=== PATIENT | male | born 1975 | race Two or more races ===

== ENCOUNTER 2022-10-17 11:41 | Outpatient (CLI) | payer MEDICAID | END 2022-10-17 23:59 | disposition critical access hospital (66) | LOC: EMS 11:41 | DX: R44.3 Hallucinations, unspecified (principal) | CPT/HCPCS: A0425; A0429; A0999 ==

== ENCOUNTER 2022-10-17 12:04 | Emergency (ER) | payer MEDICAID, OTHER ==
[2022-10-17 12:12] VITALS: BP 121/80
--- NOTE | 2022-10-17 12:27 | ED Physician Documentation ---
PD HPI MHE - Stated complaint Stated Complaint: MHE - Chief complaint Chief Complaint: MHE - History obtained from History obtained from: Patient - Additional information Additional information: Patient is a 47-year-old male with a history of alcohol abuse presenting for evaluation from [facility].Is no nurse report from the [facility] so the presentation is a bit unclear. Per the RN that the medics stated that the patient was sent for hallucinations for the past 2 days. Patient states he has been at the facility for the past 4 days. He believes he was sent here for evaluation of abnormal labs. He denies SI or HI.I asked if he is having hallucinations and he denies this. Review of Systems Constitutional: denies: Fever Cardiac: denies: Chest pain / pressure Respiratory: denies: Dyspnea GI: denies: Abdominal Pain Neurologic: denies: Headache PD PAST MEDICAL HISTORY - Allergies Allergies/Adverse Reactions: Allergies Allergy/AdvReac Type Severity Reaction Status Date / Time No Known Drug Allergies Allergy Verified 10/17/22 12:09 PD ED PE NORMAL - General General: Alert and oriented X 3, No acute distress, Well developed/nourished - HEENT HEENT: Atraumatic - Neck Neck: Supple, no meningeal sign - Cardiac Cardiac: RRR - Respiratory Respiratory: No respiratory distress, Clear bilaterally - Abdomen Abdomen: Soft, Non tender, Non distended - Derm Derm: Warm and dry - Neuro Neuro: Normal speech Results - Vitals Vitals: Vital Signs - 24 hr 10/17/22 10/17/22 12:09 12:12 Temperature 36.6 C 36.6 C Heart Rate 90 90 Respiratory 16 16 Rate Blood Pressure 121/80 121/80 O2 Saturation 96 96 Oxygen O2 Source Room air - Labs Labs: Laboratory Tests 10/17/22 10/17/22 10/17/22 12:23 12:23 12:23 WBC 6.4 RBC 3.95 L Hgb 13.1 L Hct 37.5 L MCV 94.9 H MCH 33.2 H MCHC 34.9 RDW 13.0 Plt Count 68 L MPV 11.4 Neut # (Auto) 4.4 Lymph # (Auto) 0.9 L [place] # (Auto) 0.9 Eos # (Auto) 0.1 Baso # (Auto) 0.0 Absolute Nucleated RBC 0.00 Nucleated RBC % 0.0 Sodium 132 L Potassium 3.4 L Chloride 93 L Carbon Dioxide 25 Anion Gap 14.0 H BUN 9 Creatinine 0.8 Estimated GFR (MDRD) 104 Glucose 118 H Calcium 9.1 Total Bilirubin 4.7 H AST 146 H ALT 63 H Alkaline Phosphatase 97 Ammonia Total Protein 7.2 Albumin 3.5 Globulin 3.7 Albumin/Globulin Ratio 0.9 L Lipase 65 H TSH 7.30 H Free T4 Urine Color Urine Clarity Urine pH Ur Specific [place] Urine Protein Urine Glucose (UA) Urine Ketones Urine Occult Blood Urine Nitrite Urine Bilirubin Urine Urobilinogen Ur Leukocyte Esterase Ur Microscopic Review Urine Culture Comments Salicylates < 6.0 Urine Opiates Screen Ur Oxycodone Screen Urine Methadone Screen Ur Propoxyphene Screen Acetaminophen < 10 L Ur Barbiturates Screen Ur Tricyclics Screen Ur Phencyclidine Scrn Ur Amphetamine Screen U Methamphetamines Scrn U Benzodiazepines Scrn Urine Cocaine Screen U Cannabinoids Screen Ethyl Alcohol < 5.0 10/17/22 10/17/22 10/17/22 12:24 13:10 14:24 WBC RBC Hgb Hct MCV MCH MCHC RDW Plt Count MPV Neut # (Auto) Lymph # (Auto) [place] # (Auto) Eos # (Auto) Baso # (Auto) Absolute Nucleated RBC Nucleated RBC % Sodium Potassium Chloride Carbon Dioxide Anion Gap BUN Creatinine Estimated GFR (MDRD) Glucose Calcium Total Bilirubin AST ALT Alkaline Phosphatase Ammonia 22.4 Total Protein Albumin Globulin Albumin/Globulin Ratio Lipase TSH Free T4 1.37 Urine Color DK. ORANGE Urine Clarity CLEAR Urine pH 6.0 Ur Specific [place] 1.010 Urine Protein NEGATIVE Urine Glucose (UA) NEGATIVE Urine Ketones NEGATIVE Urine Occult Blood NEGATIVE Urine Nitrite NEGATIVE Urine Bilirubin MODERATE H Urine Urobilinogen 2 H Ur Leukocyte Esterase NEGATIVE Ur Microscopic Review NOT INDICATED Urine Culture Comments NOT INDICATED Salicylates Urine Opiates Screen NEGATIVE Ur Oxycodone Screen NEGATIVE Urine Methadone Screen NEGATIVE Ur Propoxyphene Screen NEGATIVE Acetaminophen Ur Barbiturates Screen NEGATIVE Ur Tricyclics Screen NEGATIVE Ur Phencyclidine Scrn NEGATIVE Ur Amphetamine Screen NEGATIVE U Methamphetamines Scrn NEGATIVE U Benzodiazepines Scrn POSITIVE H Urine Cocaine Screen NEGATIVE U Cannabinoids Screen POSITIVE H Ethyl Alcohol PD Medical Decision Making - ED course Complexity details: reviewed results, re-evaluated patient, d/w patient ED course: 1400 - Discussed with RN and GAMALIEL. They states that this morning he was being aggressive with trying to stop at chairs which was more that they could handle. They also stated that his blood pressure and heart rate were not elevated and felt that this was not related to withdrawal symptoms and thought that perhaps it was related to a psychiatric reason. They do have psychiatric services available through [facility] but did not pursue this avenue this morning. Discussed that if patient has been cooperative here without requiring any medications whether he can come back. RN is going to check with her tire center supervisor.They are holding his bed. 1420 - [facility] RN has called back and stated that the provider would like an ammonia level. I did explain that the patient does not appear to be encephalopathic. They are still requesting this lab which I have ordered. I did review this with the patient. Patient presenting for evaluation of hallucinations from the [facility] Reported aggressive behavior.He is not aggressive here. He appears to be alert and oriented x4. He does at times hallucinate and reports seeing his down the hallway. His CIWA score was 6 Prior to receiving any medication (one score is charted at 25 Patient is observed in the hallway being calm not agitated I did ask the manufacturing plant manager to recheck his CIWA score She obtained a 6). His initial reason for presentation was unclear as [facility] did not give a nurse to nurse report. Therefore screening labs were obtained. His bilirubin is elevated as are his LFTs. These are noted on prior labs he has had as an outpatient although his bili is slightly more elevated today than it has been previously. Itching was initially ordered as I was not clear as to why patient was sent to the emergency department.He does not have any right upper quadrant tenderness on exam Reports he has known abnormal LFTs I was eventually able to get outpatient records.Therefore I did cancel the ultrasound as this does not appear to be an acute issue for the patient.Patient has not been aggressive here. He at times is hallucinating which could be related to alcohol withdrawal or an underlying psychiatric diagnosis. I did review the case with the RN at [facility] and she has spoken to her provider there. There agreeable and receiving the patient back there and have held the bed. He is not suicidal or homicidal. He does answer most of my questions appropriately and again does not appear to be acutely altered. Departure - Departure Disposition: 01 Home, Self Care Clinical Impression: Alcohol withdrawal syndrome, Abnormal liver function test Condition: Stable Instructions: ED Withdrawal Alcohol Comments: [facility] is expecting you and is holding your bed for you. Please continue with your treatment.Your liver markers are elevated which is likely related to your alcohol use. I would recommend close follow-up with your primary care provider for Continued monitoring. [facility] [address] [facility] offers a monitored and safe setting for individuals withdrawing from alcohol and drugs, and counseling for individuals experiencing a mental health crisis. All services are provided in a 10-bed facility where intensive medical monitoring is required along with stabilization services. The goal of these services is to assess a clients mental health and substance use disorder related needs, and assist them in accessing the services they need to recover. Discharge Date/Time: 10/17/22 15:20
[2022-10-17 12:31] LABS: BASOPHILS % (AUTO) 0.5 %; EOSINOPHILS # (AUTO) 0.1 10^3/uL (0.0-0.7); EOSINOPHILS % (AUTO) 1.1 %; HCT - HEMATOCRIT 37.5 % (42.0-52.0); HGB - HEMOGLOBIN 13.1 g/dL (14.0-18.0); LYMPHOCYTES # (AUTO) 0.9 10^3/uL (1.5-3.5); LYMPHOCYTES % (AUTO) 14.5 %; MEAN CORPUSCULAR HEMOGLOBIN 33.2 pg (27.0-31.0); MEAN CORPUSCULAR HGB CONC 34.9 g/dL (32.0-36.0); MEAN CORPUSCULAR VOLUME 94.9 fL (80.0-94.0); MEAN PLATELET VOLUME 11.4 fL (7.4-11.4); MONOCYTES # (AUTO) 0.9 10^3/uL (0.0-1.0); MONOCYTES % (AUTO) 14.7 %; NEUTROPHILS # (AUTO) 4.4 10^3/uL (1.5-6.6); NEUTROPHILS % (AUTO) 68.7 %; PLT - PLATELET COUNT 68 10^3/uL (130-450); RED BLOOD COUNT 3.95 10^6/uL (4.70-6.10); WHITE BLOOD COUNT 6.4 x10^3/uL (4.8-10.8)
[2022-10-17 12:47] LABS: ACETAMINOPHEN < 10 ug/mL (10-30); ALBUMIN 3.5 g/dL (3.2-5.5); ALBUMIN/GLOBULIN RATIO 0.9 (1.0-2.2); ALKALINE PHOSPHATASE 97 IU/L (42-121); ALT ALANINE AMINOTRANSFERASE 63 IU/L (10-60); AST ASPARTATE AMINOTRANSFERASE 146 IU/L (10-42); BILIRUBIN,TOTAL 4.7 mg/dL (0.2-1.0); BUN - BLOOD UREA NITROGEN 9 mg/dL (6-20); CALCIUM 9.1 mg/dL (8.5-10.3); CARBON DIOXIDE - CO2 25 mmol/L (21-32); CHLORIDE 93 mmol/L (101-111); CREATININE 0.8 mg/dL (0.6-1.2); ETOH - ETHANOL < 5.0 mg/dL; GFR - MDRD 104 (>89); GLUCOSE 118 mg/dL (70-100); LIPASE 65 U/L (22-51); POTASSIUM 3.4 mmol/L (3.5-5.0); SALICYLATE < 6.0 mg/dL; SODIUM 132 mmol/L (135-145); TOTAL PROTEIN 7.2 g/dL (6.7-8.2)
[2022-10-17 13:16] LABS: MUDS CUTOFF CONCENTRATIONS CUTOFF CONC BELOW:
[2022-10-17 13:19] LABS: GLUCOSE, URINE (UA) NEGATIVE (NEGATIVE); KETONES,URINE (UA) NEGATIVE (NEGATIVE); LEUKOCYTE ESTERASE, URINE NEGATIVE (NEGATIVE); NITRITE,URINE NEGATIVE (NEGATIVE); OCCULT BLOOD,URINE NEGATIVE (NEGATIVE); PROTEIN,URINE NEGATIVE (NEGATIVE); UROBILINOGEN,URINE 2 E.U./dL (NORMAL)
[2022-10-17 13:28] LABS: CLARITY,URINE CLEAR (CLEAR)
[2022-10-17 13:32] LABS: BILIRUBIN,URINE MODERATE (NEGATIVE); ICTOTEST,URINE POSITIVE
[2022-10-17 13:33] LABS: AMPHETAMINE SCREEN,URINE NEGATIVE (NEGATIVE); BARBITURATE SCREEN,UR NEGATIVE (NEGATIVE); BENZODIAZEPINES SCREEN, URINE POSITIVE (NEGATIVE); COCAINE SCREEN URINE NEGATIVE (NEGATIVE); METHADONE SCREEN, URINE NEGATIVE (NEGATIVE); METHAMPHETAMINES SCREEN, URINE NEGATIVE (NEGATIVE); OPIATE SCREEN, URINE NEGATIVE (NEGATIVE); OXYCODONE SCREEN, URINE NEGATIVE (NEGATIVE); PROPOXYPHENE SCREEN, URINE NEGATIVE (NEGATIVE); THC CANNABINOID SCREEN, URINE POSITIVE (NEGATIVE); TRICYCLIC ANTIDEPRESSANT,URINE NEGATIVE (NEGATIVE)
[2022-10-17] MEDS ORDERED: LORazepam 1 MG TABLET PO STA (14:03)
== END 2022-10-17 15:20 | disposition home or self-care (01) ==
LOC: ED 12:04
DX: F10.239 Alcohol dependence with withdrawal, unspecified (principal); Y90.0 Blood alcohol level of less than 20 mg/100 ml; R44.3 Hallucinations, unspecified; R74.01 Elevation of levels of liver transaminase levels; E80.6 Other disorders of bilirubin metabolism
CPT/HCPCS: 36415; 80053; 80306; 80307; 80320; 80329; 81003; 82140; 83690; 84439; 84443; 85025; 99285; J8499; 81001; 87086

== ENCOUNTER 2022-10-17 18:26 | Outpatient (CLI) | payer MEDICAID | END 2022-10-17 18:27 | disposition critical access hospital (66) | LOC: EMS 18:26 | DX: R44.1 Visual hallucinations (principal); F41.9 Anxiety disorder, unspecified | CPT/HCPCS: A0425; A0429; A0999 ==

== ENCOUNTER 2022-10-17 18:47 | Emergency (ER) | payer MEDICAID ==
[2022-10-17] MEDS ORDERED: OLANZapine ODT 5 MG TABLET TL STA (19:17)
--- NOTE | 2022-10-17 19:42 | ED Physician Documentation ---
PD HPI MHE - Stated complaint Stated Complaint: AMS - Chief complaint Chief Complaint: MHE - History obtained from History obtained from: Patient, EMS - Additional information Additional information: The patient is sent back to the emergency department by a 2 for reported complaint of "we cannot keep him". The patient has a reported history of bipolar disorder and was noted to have some hallucinations and delusional thinking while at [facility]. They sent him here for an evaluation this morning, which revealed an elevated TSH at just over 7, but otherwise, fairly unremarkable work-up. He has been at [facility] to for nearly a week and has been there for alcohol treatment and at this point in time, would be expected to be out of the window of withdrawal/delirium tremens. He was noted to have some delusions and low-level hallucinations this morning, but was easily redirectable and could have a conversation. He was neither homicidal nor suicidal and after extensive work-up and observation time, he was felt to be stable and not having an acute psychotic crisis and I to I did agree to accept him back. However, they do not have a provider available there and have decided that they prefer not to keep the patient after all. The patient denies feeling any worse. Nursing staff who had him earlier feels that he is the same as when he was here before. The patient denies any other complaints at this time. He states he is feeling fine. He is not currently homicidal or suicidal. He is able to tell me that he lives in [place] with his and that the rest of his family is from [place]. He knows that he is on [facility]. PD PAST MEDICAL HISTORY - Allergies Allergies/Adverse Reactions: Allergies Allergy/AdvReac Type Severity Reaction Status Date / Time No Known Drug Allergies Allergy Verified 10/17/22 18:48 PD ED PE NORMAL - Vitals Vital signs reviewed: Yes - General General: Alert and oriented X 3, No acute distress, Well developed/nourished - HEENT HEENT: Atraumatic, PERRL, EOMI, Moist mucous membranes - Neck Neck: Supple, no meningeal sign - Respiratory Respiratory: No respiratory distress - Abdomen Abdomen: Non distended - Derm Derm: Normal color, Warm and dry, No rash - Extremities Extremities: No deformity - Neuro Neuro: Alert and oriented X 3, web site developer 2-12 intact, No motor deficit, No sensory deficit, Normal speech - Psych Psych: Normal mood, Normal affect, Other (The patient is very calm and cooperative and pleasant. He occasionally notes feeling as though there is a cat sitting on his arm, and does veer off into speaking of being chased by "agents" at sometime in the past but otherwise, is coherent and appropriate.) Results - Vitals Vitals: Vital Signs - 24 hr 10/17/22 10/17/22 10/18/22 18:48 18:52 05:21 Temperature 36.5 C 36.5 C Heart Rate 100 100 115 H Respiratory 18 18 18 Rate Blood Pressure 124/78 124/78 133/86 H O2 Saturation 96 96 97 Oxygen O2 Source Room air - Labs Labs: Laboratory Tests 10/18/22 04:31 Nasal Adenovirus (PCR) NOT DETECTED Nasal B. parapertussis DNA (PCR) NOT DETECTED Nasal Coronavir 229E PCR NOT DETECTED Nasal Coronavir HKU1 PCR NOT DETECTED Nasal Coronavir NL63 PCR NOT DETECTED Nasal Coronavir OC43 PCR NOT DETECTED Nasal Enterovir/Rhinovir PCR NOT DETECTED Nasal Influenza B PCR NOT DETECTED Nasal Influenza A PCR NOT DETECTED Nasal Parainfluen 1 PCR NOT DETECTED Nasal Parainfluen 2 PCR NOT DETECTED Nasal Parainfluen 3 PCR NOT DETECTED Nasal Parainfluen 4 PCR NOT DETECTED Nasal RSV (PCR) NOT DETECTED Nasal B.pertussis DNA PCR NOT DETECTED Nasal C.pneumoniae (PCR) NOT DETECTED Kuldip Human Metapneumo PCR NOT DETECTED Nasal M.pneumoniae (PCR) NOT DETECTED Nasal SARS-CoV-2 (PCR) NOT DETECTED PD Medical Decision Making - ED course Complexity details: reviewed old records, reviewed results, re-evaluated patient, considered differential, d/w patient ED course: I reviewed the patient's records from this morning and spoke with the emergency physician who had evaluated him this morning. The patient did have some low- level hallucinations and exhibited occasional delusional statements/thoughts, but overall, Was initially redirectable and fairly functional. I spoke with Joyce, his significant other, who stated that the patient had previously been on Seroquel but had gone off of it about a year ago and at that time the drin anu had increased. She states they have only been together 3 to 4 years and was not aware of the patient having had hallucinations or delusions before. She does not know why he was placed on Seroquel but is thought to have bipolar disorder. She stated that they live up in [place] and she has no way of coming to get him and anyway would like him to be evaluated from a mental health perspective. At this point in time, the patient is not suicidal or homicidal and I felt that he could stay voluntarily. The situation was explained to him, that he would need to wait overnight to see social work in the morning and he was agreeable. However, the patient became increasingly agitated over the course of the night, roaming around the emergency department, including increasingly responding to internal stimuli and Frequently making delusional statements. He had been given Zyprexa and Seroquel at the beginning of his stay, and then was given a dose of Ativan. This did seem to help slightly but the patient rebounded quickly and was worse than before. He was then given Haldol and Ativan, due to the fact that even though he is redirectable, he was constantly up roaming around, yelling at people or things that were not there, and getting into drawers and sharps container. The Haldol and Ativan helped slightly but again, the patient was back up roaming around. I did order a dose of Valium, which did seem to calm the patient down a little bit more. He had already had extensive work-up performed earlier today and had been gone only a couple of hours before returning. He had been under the strict care of the transport staff and a to his staff and they felt it was extremely unlikely that he would have gotten into anything new between his initial visit and now. I finally consulted the Telemetry psychiatrist because of the patient's escalating behavior despite multiple doses of Antianxiety and antipsychotic medication. At this point in time, the patient is in the process of being evaluated by them. He has continued to be redirectable and generally cooperative, without any threats to the staff or other patients. The patient will likely be considered involuntary at this point, though we will wait and see what the telepsychiatrist has to say. The patient is signed out to my oncoming colleague at change of shift, pending final disposition. 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 It does appear that your thyroid may be a bit low, but further testing with your primary care physician would be most ideal to determine the best course of action. We will give you a prescription for the thyroid replacement for now. At this point in time, I to a prefers not to take you back, as they feel they have adequately treated your alcohol withdrawal and they feel that you need to get further help with your mental health state before you stay any longer with them. Please speak with your primary doctor about follow-up for mental health. You may also speak with your doctor about some resources closer to where you live that can be helpful with your alcohol abuse.
[2022-10-17] MEDS ORDERED: QUEtiapine 25 MG TABLET PO STA (20:19)
[2022-10-17] MEDS ORDERED: LORazepam 2 MG/ML VIAL IM STA (21:31)
[2022-10-18] MEDS ORDERED: HALOPERIDOL 5 MG/ML VIAL IM STA (02:00)
[2022-10-18] MEDS ORDERED: LORazepam 2 MG/ML VIAL IM STA (02:00)
[2022-10-18] MEDS ORDERED: diazePAM INJ 5 MG/ML SYRINGE IM STA (04:38)
[2022-10-18 05:55] LABS: B. PARAPERTUSSIS- RESP PCR PAN NOT DETECTED; B. PERTUSSIS- RESP PCR PANEL NOT DETECTED; C. PNEUMONIAE- RESP PCR PANEL NOT DETECTED; CORONAVIRUS 229E-RESP PCR NOT DETECTED; CORONAVIRUS HKU1-RESP PCR NOT DETECTED; CORONAVIRUS NL63-RESP PCR NOT DETECTED; CORONAVIRUS OC43-RESP PCR NOT DETECTED; HUMAN METAPNEUMOVIRUS NOT DETECTED; INFLUENZA A- RESP PCR PANEL NOT DETECTED; INFLUENZA B - RESP PCR PANEL NOT DETECTED; M. PNEUMONIAE- RESP PCR PANEL NOT DETECTED; PARAINFLUENZA VIRUS 1 NOT DETECTED; PARAINFLUENZA VIRUS 2 NOT DETECTED; PARAINFLUENZA VIRUS 3 NOT DETECTED; PARAINFLUENZA VIRUS 4 NOT DETECTED; RHINOVIRUS/ENTEROVIRUS NOT DETECTED; RSV- RESP PCR PANEL NOT DETECTED; SARS-CoV-2 -RESP PCR PANEL NOT DETECTED
[2022-10-18] MEDS ORDERED: OLANZapine 10 MG VIAL IM STA (08:24)
--- NOTE | 2022-10-18 08:37 | TELEPSYCH PHYS NOTE ---
Telepsych Consultation Note Consult: Name: Del RhodesOB: 1975 DateandTime: 10/18/2022 10:35:07 AM [facility] Length of consult: 50 minutes This evaluation was conducted via video telepsychiatry with the assistance of onsite staff Reason for consult: Psychotic symptoms Requested by: Dr. Colón History of Present Illness: Chart reviewed and appreciated, case discussed with ED attending Dr. Colón, and [facility] 47 y/[facility] male with possible history of bipolar disorder as well as extensive alcohol abuse, sent to ED for second time in 24 hours from rehab facility due to psychotic symptoms. The first time, pt was sent back to rehab but then was sent back to ED again due to increased symptoms. Pt was initially calm, able to carry on conversation but having visual hallucinations. However, overnight the pt became increasingly agitated, delusional, and having increased hallucinations. Pt received multiple medications including Seroquel, Zyprexa, Haldol, total of 4 mg of Ativan and 10 mg of Valium. None of this helped significantly per attending, though pt is somewhat calmer this morning. Attending reports that pt has had tactile hallucination of cat crawling on him. Possibility of DT's was considered, unknown exactly when last drink was however pt had been at rehab for approximately 5-6 days and received Ativan there for detox. Pt's detox was completed and psychotic symptoms emerged after that point. Vitals have been stable while in the ED, pt has no tremor or other objective signs of withdrawal. Pt also had medical workup, showed TSH of 7 but otherwise unremarkable. Staff spoke with pt's , who was unaware of any prior psychosis but has only been with pt for a few years. She did report that pt was on Seroquel in the past, quit taking it about a year ago and has been drinking heavily since then. Per [facility] note, pt denied SI or HI but made bizarre statement about wanting to kill gum machine operator Jose Ross because "'I don't think the baby will come out right'". Pt was apparently talking to his who was not present, was oriented only to person/place, reported that Jean-Paul Reyesmcfarland is President. Pt seen and examined, is initially pacing around, has to be redirected by staff. Pt is cooperative with interview but is quite disorganized, illogical for the most part. Pt is able to answer a few questions coherently but otherwise most of what he says is nonsensical. Pt is also visibly responding to internal stimuli. Initially staff explains this is a telepsych evaluation, and pt replies, "hi tele". When asked why pt is in the ED, he replies, "I was in here, already having the trust and then... out here the hulk... which also after that were, it it, ADHD too and bipolar depression... [facility]". When asked if hearing or seeing anything concerning, pt replies, "there was a first, yeah". "Going wow, for some reason my head just". Pt is able to state his date of , but reports date as 23 of September. When asked for year, pt replies, "9 dollars, my brother is screwing on me". When asked again, pt replies, "12, it's a worm to go...". Pt reports being in [place]. Pt admits to history of bipolar disorder. When asked about past symptoms, pt replies, "hold on I lost the remote". Pt then states he found it. When asked if pt has history of hallucinations or paranoia with bipolar disorder, pt replies, "yeah but not like that". Pt recalls taking Seroquel, reports that he will not take that anymore. When asked why, pt replies, "...that was with 10 mg or 100 mg... everyone called it dirt bike bags, or dirt flow bags, just the worst words you possibly..." Retail Visual Merchandiser informs pt of recommendation for inpatient psychiatric treatment. Pt inquires where he would go, leader writer explains that is not known yet. Pt reports he is agreeable to treatment. However, when asked about treatment plan just discussed, pt replies, "number one". When asked where he would go from here for treatment, pt replies, "the beginning". Pt then states, "I need to take a quick break, I'll be right back". Unable to obtain any further meaningful history from pt. Attempted to contact pt's but there was no answer. [facility] also tried twice previously, mailbox was full so message could not be left. Collateral Contacted: Juanita for not contacting the collateral:No answer Phone Number:kathy Cook, . Sleep issues?: YesSleep Quantity:Patient has been awake all night despite receiving multiple medications.Sleep Quality:Poor Psychiatric History/Treatment History: Past diagnoses: Bipolar disorder Hospitalizations: YesDescription:Details not known Current Treatment:No Suicide Assessment: PSS-3: 1) Over the past 2 weeks have you felt down, depressed or hopeless?Unknown-NA Description:Unable to complete due to pt's current mental status. However, pt denies current SI. 2) Over the past 2 weeks have you had thoughts of killing yourself?Unknown-NA 3) Have you ever in your life attempted to kill yourself?Unknown-NA Within the past 6 months? [facility] Safety Assessment: Risk Factors Stressors: Unable to obtain due to pt's mental status Attempts/Self-injury: Unknown-NA Impulsivity:YesDescription:Impulsive behavior during current ED visit. Drug/Alcohol History:YesDescription:History of alcohol abuse, was at rehab facility. UDS positive for cannabis. Trauma History:Unknown-NA Access to firearms:Unknown-NA HI/Violence/Property destruction:No Legal: Unknown-NA Family Psych History:YesDescription:Pt previously reported "everyone has issues". Family History of suicide:Unknown-NA Protective Factors: Can handle stress well?Unknown-NA Episcopalian?Unknown-NA External: Social supports/ Therapeutic relationships: YesDescription: Relationship history: Pt is . Living situation: Lives with . 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 Education: High school Responsibility to family/children/work: Unknown-NA Future orientation:YesDescription:Pt reported to [facility] that he wants to get home to his . Health History: Medical History: None documented Medications & Freq: None Allergies: NKDA Mental Status Exam: Appearance and Attire:Disheveled, Appears stated age Psychomotor agitation:Psychomotor agitation, Pacing around, has to be redirected multiple times. Attitude and behavior:Cooperative but confused Speech:Normal to low volume, mumbling at times, rambling Mood:Somewhat anxious Affect:Blunted Thought process:Disorganized, illogical, often incoherent Thought content:No suicidal ideation, No homicidal ideation Perception:Pt is visibly responding to internal stimuli, thinks he is talking to his brother. Pt also has been observed by staff to have VH and tactile hallucinations as well. Intel:Unable to assess Abstract:Unable to assess Language:No abnormality Orientation:Oriented to self only Sense:Alert Knowledge:Unable to assess Memory:Unable to assess Insight:Impaired Judgement:Impaired Gait:No abnormality Impression/Risk Assessment: Current Suicide Risk Elevated?No Current Violence Risk Elevated?No Issues with ability to care for self?Yes Summary: 47 y/o male with history of likely bipolar disorder as well as alcohol abuse, with past psychiatric admissions, no known history of suicide attempts or violence, non-compliant with medication x 1 year, sent to ED twice from rehab facility due to psychotic symptoms. Pt initially was fairly well-oriented, redirectable and able to converse but over time became increasingly agitated, with multiple delusions and hallucinations and has required chemical restraints. On exam, pt is cooperative but oriented only to self and is quite disorganized, only able to answer a few questions logically. Pt is visibly responding to internal stimuli, reports brother is talking to him. While presentation is concerning for alcohol withdrawal delirium, pt's last drink was at least 5-6 days ago and pt was treated with Ativan at substance treatment facility. Pt's vitals also have remained stable while in and out of the ED over the past 24 hours, has had no tremor or other objective signs of withdrawal. Pt's symptoms also did not respond significantly to benzos per staff report. Symptoms therefore appear to be most likely psychiatric and pt does have history of bipolar disorder. Pt is currently unable to care for self due to level of psychosis, is not safe for discharge at this time. Diagnosis: F29 Unspecified psychosis; F10.20 Severe alcohol use disorder CPT Codes: 76501 - Psychiatric Diagnostic Evaluation with Medical Services Treatment Plan: General: Recommend inpatient psychiatric admission for safety/stabilization. Pt does not currently have capacity to consent to treatment, so [facility]CR referral is needed to evaluate for possible involuntary admission. Recommend continued monitoring over time for any signs of late onset withdrawal. Level of Care: Psychiatric admission Psychiatric Clearance: No Observation level 1:1 needed?: Yes Pharmacological: Recommend starting Zyprexa 5 mg BID, with Haldol 5 mg/Ativan 2 mg PO (1st line) or IM (2nd line) q6H prn agitation. Monitor for EPS. Also recommend CIWA protocol for continued withdrawal monitoring. Patient psychotic?YesWas a standing psychotic ordered?YesDescription: Recommending Zyprexa Therapy: N/A Follow up needed while in the hospital?: NA Discussed plan with onsite nut steamer: Yes Who Dr. Macho Coffey MD List names and roles of persons who participated in consult: Taylor Todd DO; ED staff
[2022-10-18 14:01] VITALS: BP 131/93
--- NOTE | 2022-10-18 15:28 | ED Physician Documentation ---
ED Addendum - Addendum Addendum: 10/18/22 15:25 Care of this patient Del Hanley was turned over to me by Dr. Mayorga at shift change. Telepsych has recommended inpatient therapy for this 47-year-old male who has been through alcohol detox within the last 6 days and is now appearing delirious and psychotic. He has a history of bipolar disorder. Despite multiple doses of Zyprexa and Seroquel the patient continues to need frequent redirection. He has improved with these medications. We were able to find psychiatric care for this patient at [facility]. Impression: Acute psychosis unspecified, alcohol use disorder severe. Plan: The patient was transferred to [facility] with a Andrey alvarez.
== END 2022-10-18 16:10 ==
LOC: EDUNIT# → ED 18:47
DX: F10.951 Alcohol use, unspecified with alcohol-induced psychotic disorder with hallucinations (principal); F23 Brief psychotic disorder; E03.9 Hypothyroidism, unspecified; Z20.822 Contact with and (suspected) exposure to COVID-19
CPT/HCPCS: 87633; 90834; 96372; A9270; J2060; Q3014